=== PATIENT | female | born 1980 | race American Indian/Alaskan Native ===

== ENCOUNTER 2017-02-22 18:02 | Emergency (ER) | payer MEDICAID, OTHER ==
[2017-02-22 18:45] LABS: Basophils % (Auto) 0.9 % (0.0-1.8); Eosinophils % (Auto) 2.5 % (0.0-4.3); Hematocrit 36.3 % (30.3-42.9); Hemoglobin 11.4 gm/dl (10.1-14.3); Mean Corpuscular HGB Conc 32 % (30-34); Platelet Count 242 K/mm3 (140-440); Red Blood Count 5.28 M/mm3 (3.65-5.03); Red Cell Distribution Width 16.3 % (13.2-15.2)
[2017-02-22 18:46] LABS: Mean Corpuscular Hemoglobin 22 pg (28-32); Mean Corpuscular Volume 69 fl (79-97)
[2017-02-22 19:03] LABS: Anion Gap 17 mmol/L; Blood Urea Nitrogen 11 mg/dL (7-17); Calcium 9.4 mg/dL (8.4-10.2); Carbon Dioxide 26 mmol/L (22-30); Chloride 101.8 mmol/L (98-107); Glucose 99 mg/dL (65-100); Potassium 3.8 mmol/L (3.6-5.0); Sodium 141 mmol/L (137-145)
--- NOTE | 2017-02-22 21:31 | Emergency Department Report ---
HPI - General Chief Complaint: Headache Time Seen by Provider: 02/22/17 20:45 - HPI HPI: The patient's 36-year-old female presents for evaluation of headache. The patient has a history of chronic hypertension as well. The patient reports onset of headache for the past 2 weeks, constant for the past 5 days, achy in quality, bilateral, bandlike, 8/10 in severity, exacerbated with bright lights. The patient states that her headache is consistent with previous migraines, and it is not the worse headache of her life or thunderclap in quality. The patient denies fever, head injury, neck pain or neck stiffness, hearing changes , smell or taste changes, paresthesias, facial drooping, slurred speech, seizure -like activity, urine or bowel incontinence or retention, or other focal neurological deficit. ED Past Medical Hx - Past Medical History Previous Medical History?: Yes Hx Hypertension: Yes Hx Headaches / Migraines: Yes - Surgical History Past Surgical History?: Yes Hx Cholecystectomy: Yes Additional Surgical History: C SECTION - Social History Smoking Status: Current Every Day Smoker Substance Use Type: None - Medications Home Medications: Home Medications Medication Instructions Recorded Confirmed Last Taken Type Acetaminophen/Codeine [Tylenol #3] 1 tab PO Q6H PRN #10 tab 02/22/17 Unknown Rx Ibuprofen [Motrin] 800 mg PO Q8HR PRN #15 tablet 02/22/17 Unknown Rx ED Review of Systems ROS: Stated complaint: SEVERE HEADACHE X 2 WKS Other details as noted in HPI Constitutional: denies: fever ENT: denies: throat or neck pain Respiratory: denies: cough, shortness of breath Cardiovascular: denies: chest pain Endocrine: denies unexplained weight loss or gain Gastrointestinal: denies: abdominal pain, nausea Genitourinary: denies: dysuria Musculoskeletal: denies: leg swelling Skin: denies: rash Neurological: reports headache Hematological/Lymphatic: denies: easy bleeding or easy bruising Psych: denies sadness or hopelessness Physical Exam - Physical Exam Vital Signs: Vital Signs 02/22/17 18:13 Temperature 98.3 F Pulse Rate 78 Respiratory 22 Rate Blood Pressure 159/120 O2 Sat by Pulse 99 Oximetry Physical Exam: General: well-nourished, well-developed, no acute distress Head: Normocephalic, atraumatic Eyes: normal sclera, PERRL, EOM intact ENT: Mucous membranes are pink and moist Neck: trachea midline, neck supple, No neck stiffness, no cervical adenopathy Respiratory: Breath sounds equal bilaterally, no wheezing, rales, or rhonchi Cardio: S1 and S2 present, no murmurs, rubs, gallops, capillary refill is brisk Abdomen: Normoactive bowel sounds, soft abdomen, no tenderness Musc: No pitting edema Skin: No rash Neuro: alert oriented x4, normal cognition, speech normal, no facial drooping, CN 2-12 grossly intact, no uvula or tongue deviation on protrusion, no deficit with rotation of neck or shoulder shrug, no obvious gross motor deficit in the upper or lower extremities with flexion or extension at the shoulder, elbow, wrist, hip, knee, or ankle bilaterally, no obvious gross sensation deficit in the arms or legs, 2+ symmetric reflexes on DTR testing, no coordination deficit with [id number] testing, romberg negative, patient able to to ambulate without abnormal gait Psych: Normal affect ED Course Vital Signs 02/22/17 18:13 Temperature 98.3 F Pulse Rate 78 Respiratory 22 Rate Blood Pressure 159/120 O2 Sat by Pulse 99 Oximetry ED Medical Decision Making - Lab Data Result diagrams: 02/22/17 18:29 02/22/17 18:29 - Medical Decision Making The patient was seen and examined by myself. The patient is placed on a classroom monitor and continuous pulse ox. On initial evaluation, the patient was found to be in no distress. As there are no neuro deficits or other findings on examination concerning for acute intracranial disease process, and as the patient states that symptoms are consistent with previous headaches, a CAT scan of the head will not be obtained at this time. IV access is established and the patient is given IV Reglan, Benadryl, and IV Toradol for headache. The patient is given IV labetalol for her elevated blood pressure. The patient was reevaluated and reported that their symptoms were markedly improved, and the patient's blood pressure is found to have decrease outside of range concerning for hypertensive emergency. The patient is stable for discharge with outpatient follow-up. The patient is given follow-up and return instructions. The patient expressed understanding and agreed with the plan. The patient is discharged in stable condition. Critical care attestation.: If time is entered above; I have spent that time in minutes in the direct care of this critically ill patient, excluding procedure time. ED Disposition Clinical Impression: Hypertensive urgency Acute nonintractable headache Qualifiers: Headache type: tension-type Qualified Code(s): G44.209 - Tension-type headache , unspecified, not intractable Disposition: DISCHARGED TO HOME OR SELFCARE Is pt being admited?: No Does the pt Need Aspirin: No Condition: Stable Instructions: Chronic Hypertension (ED), Acute Headache (ED) Referrals: PRIMARY CARE, [Primary Care Provider] - 3-5 Days Time of Disposition: 21:26
[2017-02-22] MEDS: BENADRYL IV ONE (21:35)
[2017-02-22] MEDS: REGLAN IV ONE (21:37)
[2017-02-22] MEDS: TORADOL IV ONE (21:40)
[2017-02-22] MEDS: VALIUM IV ONE (21:45)
[2017-02-22 22:11] VITALS: BP 134/68
[2017-02-22] MEDS: NORMODYNE IV ONE ×2 (22:33→22:39)
[2017-02-22] MEDS: APRESOLINE IV ONE (22:39)
== END 2017-02-22 23:22 | disposition home or self-care (01) ==
LOC: ED 18:02
DX: G44.209 Tension-type headache, unspecified, not intractable (principal); I10 Essential (primary) hypertension; F17.200 Nicotine dependence, unspecified, uncomplicated
CPT/HCPCS: 36415; 80048; 85025; 93005; 93010; 96374; 96375; 99284; J1200; J1885; J2765; J3360

== ENCOUNTER 2017-12-16 19:31 | Emergency (ER) | payer SELFPAY ==
[2017-12-16] MEDS ORDERED: TYLENOL ONE (20:41)
[2017-12-16 21:30] LABS: Bilirubin,Urine NEG (Negative); Blood,Urine NEG (Negative); Color,Urine Yellow (Yellow); Mucus,Urine FEW /HPF; Nitrite,Urine NEG (Negative); Protein,Urine <15 mg/dL mg/dL (Negative)
[2017-12-16 21:58] LABS: Basophils # (Auto) 0.1 K/mm3 (0.0-0.1); Basophils % (Auto) 0.8 % (0.0-1.8); Eosinophils # (Auto) 0.1 K/mm3 (0.0-0.4); Eosinophils % (Auto) 1.9 % (0.0-4.3); Hematocrit 38.3 % (30.3-42.9); Lymphocytes # (Auto) 2.6 K/mm3 (1.2-5.4); Lymphocytes % (Auto) 36.2 % (13.4-35.0); Mean Corpuscular HGB Conc 31 % (30-34); Monocytes # (Auto) 0.5 K/mm3 (0.0-0.8); Monocytes % (Auto) 6.8 % (0.0-7.3); Platelet Count 248 K/mm3 (140-440); Red Blood Count 5.49 M/mm3 (3.65-5.03); Red Cell Distribution Width 16.3 % (13.2-15.2)
[2017-12-16 22:02] LABS: Mean Corpuscular Hemoglobin 22 pg (28-32); Mean Corpuscular Volume 70 fl (79-97)
[2017-12-16] MEDS ORDERED: TYLENOL PO ONE (22:04)
[2017-12-16 22:18] LABS: BUN/Creatinine Ratio 11; Blood Urea Nitrogen 10 mg/dL (7-17); Calcium 8.8 mg/dL (8.4-10.2); Hemolysis Index 1
--- NOTE | 2017-12-16 23:02 | Cat Scan Report ---
FINAL REPORT PROCEDURE: CT HEAD/BRAIN WO CON TECHNIQUE: Computerized tomography of the head was performed without contrast material. HISTORY: [facility]AS COMPARISON: No prior studies are available for comparison. FINDINGS: Skull and scalp: Normal. Paranasal sinuses: Normal. Ventricles and subarachnoid spaces: Normal. Cerebrum: No evidence of hemorrhage, acute infarction or mass . Cerebellum and brainstem: No evidence of hemorrhage, acute infarction or mass. Vasculature: Normal. Comments: None. IMPRESSION: Normal Examination
--- NOTE | 2017-12-17 00:50 | Emergency Department Report ---
ED Headache HPI - General Chief Complaint: Headache Stated Complaint: MIGRAINE Time Seen by Provider: 12/17/17 00:39 Source: patient Exam Limitations: no limitations - History of Present Illness Initial Comments: She is a 37-year-old female presents emergency room with complaints of a migraine 1 day. Patient states that the migraine when she arrived was a 7 out of 10 patient states now after a dose of Tylenol it is 3 out of 10. Patient has included BC powders. Patient states that the medications [id number] were not working as well as she came to the emergency room. Patient states she been out of her blood pressure medication for over a month. patient was taking Norvasc and Diovan. Patient states she did not get her medication because her insurance lapsed. Patient denies blurred vision and dizziness. Patient denies confusion or lethargy. Timing/Duration: 24 hours Quality: moderate Head Injury Location: frontal, occipital Recent Head Trauma: no recent headache/trauma Modifying Factors: improves with: cold therapy, exposure to light, medication, movement, rest Associated Symptoms: denies symptoms Allergies/Adverse Reactions: Allergies No Known Allergies Allergy (Unverified 02/07/16 17:14) Home Medications: Ambulatory Orders Acetaminophen/Codeine [Tylenol #3] 1 tab PO Q6H PRN #10 tab 02/22/17 Ibuprofen [Motrin] 800 mg PO Q8HR PRN #15 tablet 02/22/17 amLODIPine [Norvasc] 5 mg PO DAILY #14 tablet 12/17/17 ED Review of Systems ROS: Stated complaint: MIGRAINE Other details as noted in HPI Constitutional: denies: chills, fever Eyes: denies: eye pain, eye discharge, vision change ENT: denies: ear pain, throat pain Respiratory: denies: cough, shortness of breath, wheezing Cardiovascular: denies: chest pain, palpitations Endocrine: no symptoms reported Gastrointestinal: denies: abdominal pain, nausea, diarrhea Genitourinary: denies: urgency, dysuria, discharge Musculoskeletal: denies: back pain, joint swelling, arthralgia Skin: denies: rash, lesions Neurological: headache. denies: weakness, paresthesias Psychiatric: denies: anxiety, depression Hematological/Lymphatic: denies: easy bleeding, easy bruising ED Past Medical Hx - Past Medical History Previous Medical History?: Yes Hx Hypertension: Yes Hx Headaches / Migraines: Yes - Surgical History Past Surgical History?: Yes Hx Cholecystectomy: Yes Additional Surgical History: C SECTION - Family History Family history: hypertension - Social History Smoking Status: Current Every Day Smoker Substance Use Type: None - Medications Home Medications: Home Medications Medication Instructions Recorded Confirmed Last Taken Type Acetaminophen/Codeine [Tylenol #3] 1 tab PO Q6H PRN #10 tab 02/22/17 Unknown Rx Ibuprofen [Motrin] 800 mg PO Q8HR PRN #15 tablet 02/22/17 Unknown Rx amLODIPine [Norvasc] 5 mg PO DAILY #14 tablet 12/17/17 Unknown Rx ED Physical Exam - General Limitations: No Limitations General appearance: alert, in no apparent distress - Head Head exam: Present: atraumatic, normocephalic - Eye Eye exam: Present: normal appearance - ENT ENT exam: Present: mucous membranes moist - Neck Neck exam: Present: normal inspection - Respiratory Respiratory exam: Present: normal lung sounds bilaterally. Absent: respiratory distress - Cardiovascular Cardiovascular Exam: Present: regular rate, normal rhythm. Absent: systolic murmur, diastolic murmur, rubs, gallop - GI/Abdominal GI/Abdominal exam: Present: soft, normal bowel sounds - Extremities Exam Extremities exam: Present: normal inspection - Back Exam Back exam: Present: normal inspection - Neurological Exam Neurological exam: Present: alert, oriented X3 - Psychiatric Psychiatric exam: Present: normal affect, normal mood - Skin Skin exam: Present: warm, dry, intact, normal color. Absent: rash ED Course Vital Signs 12/16/17 12/16/17 12/17/17 20:29 22:06 01:06 Temperature 98.2 F 98.3 F Pulse Rate 65 65 Respiratory 16 18 18 Rate Blood Pressure 154/110 167/106 Blood Pressure [Left] O2 Sat by Pulse 100 99 Oximetry 12/17/17 12/17/17 12/17/17 02:25 02:34 02:39 Temperature Pulse Rate 68 Respiratory 18 18 Rate Blood Pressure 167/107 Blood Pressure 152/110 [Left] O2 Sat by Pulse 100 100 Oximetry 12/17/17 02:40 Temperature Pulse Rate Respiratory Rate Blood Pressure 167/107 Blood Pressure [Left] O2 Sat by Pulse Oximetry - Reevaluation(s) Reevaluation #1: Headache improving. Blood pressure higher we'll give patient a dose of Norvasc and prepare for discharge 12/17/17 01:46 ED Medical Decision Making - Lab Data Result diagrams: 12/16/17 20:58 12/16/17 20:58 - Radiology Data Radiology results: report reviewed Normal limit head CT. - Medical Decision Making All labs normal. All labs results review the patient. Patient instructed to take prescription medications as directed. Patient instructed to monitor blood pressure at home. Patient encouraged to follow up with primary care as as possible and be compliant with blood pressure medications. Patient is stable for discharge. - Differential Diagnosis hbp. uncontrolled bp. migraine. jacques. Critical care attestation.: If time is entered above; I have spent that time in minutes in the direct care of this critically ill patient, excluding procedure time. ED Disposition Clinical Impression: Migraine, Headache, Hypertension, Noncompliance Disposition: - TO HOME OR SELFCARE Is pt being admited?: No Does the pt Need Aspirin: No Condition: Stable Instructions: Migraine Headache (ED), Acute Headache (ED), Hypertension (ED) Additional Instructions: Patient is to follow up with primary care within 3-5 days. Patient is to take prescription medications as directed. Patient to take Tylenol or ibuprofen when necessary pain. Patient is increase water. Patient is to rest patient is to return to ER if condition worsens.. Prescriptions: amLODIPine [Norvasc] 5 mg PO DAILY #14 tablet Referrals: MARIE GARDUNO MD [Primary Care Provider] - 3-5 Days Forms: Work/School Release Form(ED) Time of Disposition: 02:31
[2017-12-17] MEDS ORDERED: NORVASC PO ONE ×2 (01:45→01:48)
[2017-12-17 03:02] VITALS: BP 152/110
== END 2017-12-17 02:41 | disposition home or self-care (01) ==
LOC: ED 19:31
DX: G43.909 Migraine, unspecified, not intractable, without status migrainosus (principal); I10 Essential (primary) hypertension; F17.200 Nicotine dependence, unspecified, uncomplicated
CPT/HCPCS: 36415; 70450; 80048; 81001; 84703; 85025; 96372; 99284; J2930